=== PATIENT | male | born 1975 | race Caucasian/White ===

== ENCOUNTER 2021-04-02 09:57 | Emergency (ER) | payer OTHER ==
[2021-04-02 10:03] VITALS: BP 156/89
[2021-04-02] MEDS ORDERED: fentaNYL 100 MCG/2 ML INJ IM ONE (10:16)
[2021-04-02] MEDS ORDERED: ONDANSETRON 4 MG/2 ML INJ IM ONE (10:16)
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
[2021-04-02 10:55] LABS: Basophils % (Auto) 0.5 % (0.0-1.8); Eosinophils % (Auto) 0.1 % (0.0-4.3); Hematocrit 43.8 % (35.5-45.6); Lymphocytes # (Auto) 1.5 K/mm3 (1.2-5.4); Lymphocytes % (Auto) 15.5 % (13.4-35.0); Mean Corpuscular HGB Conc 34 % (32-34); Mean Corpuscular Volume 90 fl (84-94); Monocytes # (Auto) 0.5 K/mm3 (0.0-0.8); Monocytes % (Auto) 4.7 % (0.0-7.3); Platelet Count 280 K/mm3 (140-440); Red Blood Count 4.84 M/mm3 (3.65-5.03); Red Cell Distribution Width 12.8 % (13.2-15.2)
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
[2021-04-02 11:18] LABS: Creatine Kinase MB 3.7 ng/mL (0.0-4.0)
[2021-04-02 11:19] LABS: Blood Urea Nitrogen 13 mg/dL (9-20); Calcium 9.6 mg/dL (8.4-10.2); Hemolysis Index 9
[2021-04-02 11:23] LABS: BUN/Creatinine Ratio 19
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
[2021-04-02] MEDS ORDERED: IBUPROFEN 800 MG TAB ONE (11:48)
[2021-04-02] MEDS ORDERED: IBUPROFEN 800 MG TAB PO ONE (11:51)
--- NOTE | 2021-04-03 11:38 | Electrocardiograph Report ---
[facility] Test Date: 2021-04-02 Test Time: 11:09:15 Pat Name: AKILAH GONZALEZ Department: Room: Gender: M Cut [employer] Set Up Operator: RUTH : 1975 Requested By: RIANNA ANDREWS Order Number: [id number] Reading MD: Kartik Landers Measurements Intervals [place] Rate: 99 P: 56 LA: 182 QRS: 45 QRSD: 78 T: 34 QT: 339 QTc: 436 Interpretive Statements Sinus rhythm Probable left atrial enlargement No previous ECG available for comparison Electronically Signed On 04-03-2021 11:37:49 EDT by Kartik Landers
== END 2021-04-02 12:25 ==
LOC: ED 09:57
DX: S16.1XXA Strain of muscle, fascia and tendon at neck level, initial encounter (principal); S40.011A Contusion of right shoulder, initial encounter; S09.90XA Unspecified injury of head, initial encounter; E11.8 Type 2 diabetes mellitus with unspecified complications; I10 Essential (primary) hypertension; X58.XXXA Exposure to other specified factors, initial encounter; Y93.89 Activity, other specified; Y92.89 Other specified places as the place of occurrence of the external cause; Y99.8 Other external cause status
CPT/HCPCS: 36415; 70450; 71046; 72125; 80048; 80320; 82550; 82553; 84484; 85025; 93005; 99284; G0480